=== PATIENT | female | born 1930 | race Caucasian/White ===

== ENCOUNTER → 2017-11-24 19:01 | Outpatient (CLI) | payer MEDICARE, BC ==
[2014-02-07 18:17] VITALS: BMI 26.2
[~2017-11-24 19:01] MED LIST: COUMADIN3 MG; K-DUR20 MEQ PO; LEVOXYL50 MCG PO; NORVASC5 MG PO; PACERONE200 MG PO; RED YEAST RICE600 MG PO
[2017-11-24 19:54] LABS: CREATININE - SERUM 1.3 mg/dL (0.6-1.3)
== END | disposition home or self-care (01) ==
LOC: D.LABREF 19:01
PROVIDERS: Internal Medicine Pulmonary Disease
DX: R05 Cough (principal)

== ENCOUNTER → 2017-12-19 09:31 | Outpatient (CLI) | payer MEDICARE, BC ==
[2014-02-07 18:17] VITALS: BMI 26.2
[2017-12-19 11:30] LABS: CREATININE - SERUM 1.3 mg/dL (0.6-1.3)
[2017-12-23 19:12] LABS: FUNGAL - ASP FLAVUS Negative (Neg:<1:1); FUNGAL - ASP NIGER Negative (Neg:<1:1); FUNGAL - ASPER FUMIGATUS Negative (Neg:<1:1)
== END | disposition home or self-care (01) ==
LOC: D.RT 09:31
PROVIDERS: Internal Medicine Pulmonary Disease
DX: R93.8 Abnormal findings on diagnostic imaging of other specified body structures (principal); R06.09 Other forms of dyspnea; Z87.01 Personal history of pneumonia (recurrent)

== ENCOUNTER 2018-01-12 09:27 | Outpatient (CLI) | payer MEDICARE, BC ==
[~2018-01-12] VITALS: Ht 167.6 cm; Wt 62.7 kg
[2018-01-12 09:58] LABS: BASOPHILS 0.4 % (0-2); EOSINOPHILS 1.7 % (0-7); HEMOGLOBIN 12.8 g/dL (12-16); IMMATURE GRANULOCYTES 0.2 % (0-5); LYMPHOCYTES 29.8 % (15-50); MCH 31.3 pg (26.0-34.0); MCHC 33.7 g/dL (31.0-37.0); MCV 92.9 fL (80.0-100.0); MEAN PLATELET VOLUME 10.7 fL (7.4-10.4); MONOCYTES 11.2 % (2-11); NEUTROPHILS 56.7 % (40-80); PLATELET COUNT 257 10x3/uL (130-400); RBC 4.09 10x6/uL (4.00-5.40); RDW 14.7 % (11.5-14.5); WBC 9.3 10x3/uL (4.8-10.8)
[2018-01-12 10:18] LABS: INR 1.2 (0.85-1.17); PROTIME 14.8 SECONDS (11.6-15.0)
[2018-01-12 10:19] LABS: APTT 31.4 SECONDS (22.8-39.4)
[2018-01-12 12:20] VITALS: BP 166/68; Ht 167.6 cm; Wt 62.7 kg
[2018-01-14 18:08] LABS: ACID FAST SMEAR Negative (()); AFB SPECIMEN PROCESSING Concentration (())
[2018-01-18 10:21] LABS: FUNGUS STAIN Final report (())
[2018-01-22 19:07] LABS: FUNGUS MYCOLOGY CULTURE Preliminary report (())
== END 2018-01-12 15:50 | disposition home or self-care (01) ==
LOC: D.OPS 09:27
PROVIDERS: Internal Medicine Pulmonary Disease
DX: R93.8 Abnormal findings on diagnostic imaging of other specified body structures (principal); J45.909 Unspecified asthma, uncomplicated; R05 Cough; I10 Essential (primary) hypertension; Z01.812 Encounter for preprocedural laboratory examination

== ENCOUNTER → 2018-08-07 14:22 | Outpatient (CLI) | payer MEDICARE, BC ==
[2018-01-12 12:20] VITALS: BMI 22.3
== END | disposition home or self-care (01) ==
LOC: D.RAD 14:22
PROVIDERS: ATTEND Nurse Practitioner Acute Care
DX: J15.20 Pneumonia due to staphylococcus, unspecified (principal)

== ENCOUNTER 2018-11-19 07:13 | Emergency (ER) | payer MEDICARE, BC ==
[~2018-11-19] VITALS: Ht 167.6 cm; Wt 63.6 kg
[2018-11-19 07:15] VITALS: Ht 167.6 cm; Wt 63.6 kg
[2018-11-19] MEDS ORDERED: BETAPACE 80 MG80 MG PO (07:17)
[2018-11-19 07:46] LABS: BASOPHILS 0.2 % (0-2); EOSINOPHILS 0.6 % (0-7); HEMATOCRIT 37.1 % (36.0-48.0); HEMOGLOBIN 12.6 g/dL (12-16); LYMPHOCYTES 10.3 % (15-50); MCV 91.2 fL (80.0-100.0); MEAN PLATELET VOLUME 10.1 fL (7.4-10.4); MONOCYTES 7.9 % (2-11); PLATELET COUNT 227 10x3/uL (130-400); RBC 4.07 10x6/uL (4.00-5.40); RDW 14.1 % (11.5-14.5); WBC 19.2 10x3/uL (4.8-10.8)
[2018-11-19 08:00] LABS: ALBUMIN 3.5 g/dL (3.4-5.0); BILIRUBIN - TOTAL 0.61 mg/dL (0.2-1.3); CALCIUM 8.7 mg/dL (8.5-10.1); CARBON DIOXIDE 27.2 mmol/L (21.0-32.0); CREATININE - SERUM 1.3 mg/dL (0.6-1.3); POTASSIUM - SERUM 4.2 mmol/L (3.5-5.1); PROTEIN - SERUM 7.8 g/dL (6.4-8.2)
[2018-11-19 08:45] LABS: APPEARANCE CLEAR (CLEAR); BILIRUBIN NEGATIVE (NEGATIVE); COLOR STRAW (YELLOW); GLUCOSE NEGATIVE (NEGATIVE); KETONE NEGATIVE (NEGATIVE); NITRITE NEGATIVE (NEGATIVE); PROTEIN TRACE mg/dL (NEGATIVE); SPECIFIC GRAVITY 1.005 (1.005-1.020); UROBILINOGEN NORMAL (NORMAL)
[2018-11-19 08:48] LABS: BACTERIA FEW /hpf (NONE SEEN); EPITHELIAL CELLS NSEEN /hpf (0-5); RED CELLS - URINE 0-5 /hpf (0-5); WHITE CELLS - URINE NSEEN /hpf (0-5)
[2018-11-19 11:02] LABS: APTT 42.4 SECONDS (22.8-39.4); INR 2.13 (0.85-1.17); PROTIME 23.1 SECONDS (11.6-15.0)
[2018-11-19 12:38] VITALS: BP 122/76
== END 2018-11-19 12:39 | disposition home or self-care (01) ==
LOC: D.ER 07:13
PROVIDERS: Emergency Medicine
DX: I48.91 Unspecified atrial fibrillation (principal); M43.8X4 Other specified deforming dorsopathies, thoracic region; D72.829 Elevated white blood cell count, unspecified; E86.0 Dehydration; M54.6 Pain in thoracic spine

== ENCOUNTER 2019-03-23 13:16 | Inpatient (IN) | payer MEDICARE, BC ==
[~2019-03-23] VITALS: Ht 167.6 cm; Wt 61.2 kg
[~2019-03-23 13:16] MED LIST changes: +BETAPACE 80 MG80 MG PO
--- NOTE | 2019-03-23 19:00 | NUR ---
BEDSIDE REPORT COMPLETE. PT SITTING UP IN BED VISITING WITH DAUGHTER. NO SIGNS OF DISTRESS NOTED. ALERT AND ORIENTED X4. BUE BRUISING, LEFT ARM +1 EDEMA. ORIENTATED TO FLOOR, BATHROOM, FUNCTIONS OF REMOTE. PROVIDED RECLINING CHAIR AND LINENS TO DAUGHTER. CL AND WATER WITHIN REACH. FALL PRECAUTIONS IN PLACE. WILL CONTINUE TO MONITOR
[2019-03-23 23:12] VITALS: BP 179/82; BMI 21.8
[2019-03-23] MEDS ORDERED: CALCIUM 500 +1 EAC3 PO (23:37)
[2019-03-23] MEDS ORDERED: HYDROCODON-ACE1 EAC7 PO (23:38)
[2019-03-23] MEDS ORDERED: FLECAINIDE ACE100 MG PO (23:38)
[2019-03-23] MEDS ORDERED: HYDROCODONE-A1 UDTA2 PO (23:39)
[2019-03-23] MEDS ORDERED: LISINOPRIL5 MG PO (23:40)
[2019-03-23] MEDS ORDERED: NITROSTAT0.4 MG SL (23:40)
[2019-03-23] MEDS ORDERED: VITAMIN B-6100 MG PO (23:41)
[2019-03-23] MEDS ORDERED: RED YEAST RICE600 MG PO (23:42)
[2019-03-23] MEDS ORDERED: COLACE100 MG PO (23:43)
[2019-03-23] MEDS ORDERED: SYNTHROID50 MCG PO (23:43)
[2019-03-23] MEDS ORDERED: COUMADIN2.5 MG PO (23:44)
--- NOTE | 2019-03-24 00:53 | NUR ---
QUIET HOURS. PT LYING IN BED EYES CLOSED RESTING QUIETLY. DAUGHTER ASLEEP AT BEDSIDE. CL IN REACH
--- NOTE | 2019-03-24 03:54 | NUR ---
PT LYING IN BED ON RIGHT SIDE EYES CLOSED RESTING. DAUGHTER ASLEEP AT BEDSIDE. CL IN REACH
[2019-03-24 05:57] LABS: BASOPHILS 0.6 % (0-2); EOSINOPHILS 3.8 % (0-7); HEMATOCRIT 34.4 % (36.0-48.0); IMMATURE GRANULOCYTES 0.5 % (0-5); LYMPHOCYTES 26.3 % (15-50); MCH 30.5 pg (26.0-34.0); MCV 95.3 fL (80.0-100.0); MEAN PLATELET VOLUME 10.8 fL (7.4-10.4); MONOCYTES 12.2 % (2-11); NEUTROPHILS 56.6 % (40-80); RBC 3.61 10x6/uL (4.00-5.40); RDW 14.3 % (11.5-14.5); WBC 8.1 10x3/uL (4.8-10.8)
[2019-03-24 06:05] LABS: INR 1.69 (0.85-1.17); PLATELET COUNT 294 10x3/uL (130-400); PROTIME 19.3 SECONDS (11.6-15.0)
[2019-03-24 06:08] LABS: ANION GAP 13.1 mmol/L (8-16); CALCIUM 8.8 mg/dL (8.5-10.1); CREATININE - SERUM 1.2 mg/dL (0.6-1.3); POTASSIUM - SERUM 4.1 mmol/L (3.5-5.1)
[2019-03-24 08:00] VITALS: BP 155/97
--- NOTE | 2019-03-24 08:06 | NUR ---
ALERT AND ORIENTED. EATING BREAKFAST. NO C/O PAIN RESP EVEN AND UNLABORED. CL IN REACH. HAD SHOWER THIS AM PER OT.
[2019-03-24 09:14] VITALS: Ht 167.6 cm; Wt 61.2 kg
--- NOTE | 2019-03-24 11:20 | NUR ---
PARTICIPATING IN THERPY AT THIS TIME. NO C\O PAIN.
--- NOTE | 2019-03-24 16:04 | NUR ---
NO CHANGE IN ASSESSMENT. RESTING WO DISTRESS. CL IN REACH.
[2019-03-24 19:00] VITALS: BP 144/59
--- NOTE | 2019-03-24 19:00 | NUR ---
BEDSIDE REPORT COMPLETE. PT SITTING UP IN BED. ALERT AND ORIENTED X4. DENIES ANY NEEDS OR PAIN. NO FAMILY AT BEDSIDE NOTE. NO SIGNS OF ACUTE DISTRESS NOTED. VS STABLE. SHIFT ASSESSMENT COMPLETE. CL IN REACH. FALL PRECAUTIONS IN PLACE. WILL CONTINUE TO MONITOR
--- NOTE | 2019-03-25 01:28 | NUR ---
QUIET HOURS. PT LYING IN BED AWAKE AND ALERT. DENIES ANY NEEDS OR PAIN. RR EVEN AND UNLABORED. CL IN REACH
--- NOTE | 2019-03-25 04:38 | NUR ---
PT LYING IN BED EYES CLOSED RESTING QUIETLY. RR EVEN AND UNLABORED. CL IN REACH
--- NOTE | 2019-03-25 05:00 | NUR ---
ASSISTED PT TO RESTROOM AND BACK TO BED WITH SBA. NO SIGNS OF ACUTE DISTRESS NOTED CL IN REACH
--- NOTE | 2019-03-25 07:12 | NUR ---
ALERT AND ORIENTED. NO DISTRESS NOTED. RESP EVEN AND UNLABORED. CL IN REACH.
[2019-03-25 09:25] VITALS: BP 177/58
--- NOTE | 2019-03-25 10:51 | NUR ---
NO C/O PAIN. RESTING IN BED. FAMILY AT BS. CL IN REACH.
[2019-03-25 13:38] LABS: INR 1.98 (0.85-1.17); PROTIME 21.9 SECONDS (11.6-15.0)
--- NOTE | 2019-03-25 16:52 | NUR ---
NO CHANGE IN ASSESSMENT. NO DISTRESS NOTED. RESTING IN BED. CL IN REACH.
[2019-03-25 19:10] VITALS: BP 173/93
--- NOTE | 2019-03-25 19:10 | NUR ---
BEDSIDE REPORT COMPLETE. PT LYING IN BED AWAKE AND ALERT. ASSISTED TO RESTROOM AND BACK TO BED WITH SBA. C/O BACK PAIN 11/22 RADIATING. ADVISED PT CAN NOT ADMININSTER PAIN MEDICATION UNTIL 2029 WHEN NEXT DOSE IS AVAILABLE. PT VERBALIZED UNDERSTANING. VS STABLE. SHIFT ASSESSMENT COMPLETE. CL IN REACH. FALL PRECAUTIONS IN PLACE. WILL CONTINUE TO MONITOR
--- NOTE | 2019-03-25 23:42 | NUR ---
QUIET HOURS. PT LYING IN BED ON LEFT SIDE EYES CLOSED RESTING. RR EVEN AND UNLABORED. CL IN REACH
--- NOTE | 2019-03-26 03:39 | NUR ---
PT LYING IN BED ON LEFT SIDE EYES CLOSED RESTING QUIETLY. RR EVEN AND UNLABORED. CL IN REACH
--- NOTE | 2019-03-26 05:38 | NUR ---
ASSISTED PT TO RESTROOM AND BACK TO BED WITH SBA. CL IN REACH
[2019-03-26 05:48] LABS: BASOPHILS 0.4 % (0-2); EOSINOPHILS 2.3 % (0-7); HEMATOCRIT 38.5 % (36.0-48.0); HEMOGLOBIN 12.4 g/dL (12-16); IMMATURE GRANULOCYTES 0.3 % (0-5); LYMPHOCYTES 29.6 % (15-50); MCH 30.8 pg (26.0-34.0); MCHC 32.2 g/dL (31.0-37.0); MCV 95.8 fL (80.0-100.0); MEAN PLATELET VOLUME 11.6 fL (7.4-10.4); MONOCYTES 13.2 % (2-11); NEUTROPHILS 54.2 % (40-80); RBC 4.02 10x6/uL (4.00-5.40); RDW 14.3 % (11.5-14.5); WBC 9.3 10x3/uL (4.8-10.8)
[2019-03-26 06:16] LABS: ANION GAP 11.8 mmol/L (8-16); CALCIUM 8.7 mg/dL (8.5-10.1); CARBON DIOXIDE 30.2 mmol/L (21.0-32.0); CREATININE - SERUM 1.2 mg/dL (0.6-1.3)
[2019-03-26 06:23] LABS: PLATELET COUNT 355 10x3/uL (130-400)
[2019-03-26 06:33] LABS: INR 1.72 (0.85-1.17); PROTIME 19.5 SECONDS (11.6-15.0)
[2019-03-26 07:54] VITALS: BP 133/63
--- NOTE | 2019-03-26 08:15 | NUR ---
PT RESTING IN BED WITH EYES OPEN CALL LIGHT IN REACH WILL MONITER
--- NOTE | 2019-03-26 13:42 | NUR ---
Nutrition Follow-up: Diet: Regular PO intake: ~38% average x last 6 meals recorded. Reports poor appetite due to pain, N/V and diarrhea; but is drinking Ensure. Last BM: 03/25/19. Wt: 135# (03/24/19) Labs noted: GFR 45. Significant meds: coumadin Continue current nutrition regimen. Encourage PO intake. Will change oral nutrition supplement flavor per pt request. RD Following.
--- NOTE | 2019-03-26 18:43 | NUR ---
PT RESTING IN BED WITH EYES OPEN CALL LIGHT IN REACH NO PROBLEMS WILL MONITER
--- NOTE | 2019-03-26 18:55 | NUR ---
BEDSIDE REPORT COMPLETE. PT LYING IN BED AWAKE AND ALERT. ASSISTED TO RESTROOM AND BACK TO BED WITH SBA. DENIES ANY OTHER NEEDS OR PAIN. VS STABLE. SHIFT ASSESSMENT COMPLETE. CL IN REACH. FALL PRECAUTIONS IN PLACE. WILL CONTINUE TO MONITOR
[2019-03-26 21:12] VITALS: BP 118/52
--- NOTE | 2019-03-26 23:10 | NUR ---
QUIET HOURS. PT LYING IN BED ON LEFT SIDE EYES CLOSED RESTING QUIETLY. RR EVEN AND UNLABORED. CL IN REACH
--- NOTE | 2019-03-27 03:32 | NUR ---
PT LYING IN BED ON RIGHT SIDE EYES CLOSED RESTING. RR EVEN AND UNLABORED. CL IN REACH
[2019-03-27 06:25] LABS: INR 2.11 (0.85-1.17)
--- NOTE | 2019-03-27 06:34 | NUR ---
PT LYING IN BED ON RIGHT SIDE EYES CLOSED RESTING. RR EVEN AND UNLABORED. CL IN REACH
[2019-03-27 08:27] VITALS: BP 155/71
--- NOTE | 2019-03-27 11:33 | NUR ---
I have reviewed this patient and I concur with the Shift Assessment completed by the Licensed Practical Nurse today this shift.
--- NOTE | 2019-03-27 15:50 | NUR ---
PT RESTING IN BED WITH EYES OPEN CALL LIGHT IN REACH WILL MONITER
--- NOTE | 2019-03-27 17:24 | NUR ---
PT RESTING IN BED EYES OPEN CALL LIGHT IN REACH FAMILY AT BEDSIDE WILL MONITER
--- NOTE | 2019-03-27 19:32 | NUR ---
AWAKE AND ALERT. RESTING IN BED WITH RESPIRATIONS UNLABORED. ASSISTED TO BATHROOM AND BACK TO BED. MEDICATED FOR C/O BACK PAIN AND C/O NAUSEA. SEE MAR. CALL LIGHT IN REACH.
[2019-03-27 21:36] VITALS: BP 172/72
--- NOTE | 2019-03-28 00:16 | NUR ---
SLEEPING WITH RESPIRATIONS UNALBORED. NO DISTRESS NOTED. CALL LIGHT IN REACH.
--- NOTE | 2019-03-28 03:28 | NUR ---
CONTINUES SLEEPING WITH NO DISTRESS NOTED.
--- NOTE | 2019-03-28 05:09 | NUR ---
QUIET HOURS. ASSISTED UP TO BATHROOM AND BACK TO BED. MEDICATED FOR C/O PELVIC PAIN. CALL LIGHT IN REACH.
[2019-03-28 06:08] LABS: BASOPHILS 0.4 % (0-2); EOSINOPHILS 2.9 % (0-7); HEMATOCRIT 33.9 % (36.0-48.0); HEMOGLOBIN 10.7 g/dL (12-16); IMMATURE GRANULOCYTES 0.5 % (0-5); LYMPHOCYTES 25.5 % (15-50); MCH 30.3 pg (26.0-34.0); MCHC 31.6 g/dL (31.0-37.0); MEAN PLATELET VOLUME 11.3 fL (7.4-10.4); MONOCYTES 13.1 % (2-11); NEUTROPHILS 57.6 % (40-80); PLATELET COUNT 332 10x3/uL (130-400); RBC 3.53 10x6/uL (4.00-5.40); RDW 14.6 % (11.5-14.5); WBC 8.3 10x3/uL (4.8-10.8)
[2019-03-28 06:21] LABS: ANION GAP 7.3 mmol/L (8-16); CALCIUM 8.5 mg/dL (8.5-10.1); CARBON DIOXIDE 32.5 mmol/L (21.0-32.0); CREATININE - SERUM 1.4 mg/dL (0.6-1.3); POTASSIUM - SERUM 3.8 mmol/L (3.5-5.1)
[2019-03-28 06:28] LABS: INR 2.25 (0.85-1.17); PROTIME 24.2 SECONDS (11.6-15.0)
[2019-03-28 08:34] VITALS: BP 158/63
--- NOTE | 2019-03-28 10:03 | NUR ---
PARTICIPATED IN THERAPY THIS AM. IN ROOM RESTING AT THIS TIME. NO C/O PAIN. CL IN REACH.
--- NOTE | 2019-03-28 14:22 | NUR ---
DOING THERAPY WITH OT IN ROOM. PAIN MED GIVEN. SITTING IN WC.
--- NOTE | 2019-03-28 14:53 | NUR ---
PATIENT ADMITTED TO REHAB FROM AN OUTSIDE FACILITY. HER PCP IS DR. LOPEZ AND DME AT HOME IS A ROLLING WALKER. DISCHARGE PLANS ARE FOR PATIENT TO DISCHARGE HOME. WILL CONTINUE TO FOLLOW WITH PATIENT
--- NOTE | 2019-03-28 16:16 | NUR ---
NO CHANGE IN ASSESSMENT. NO C/O PAIN. FAMILY IN ROOM. CL IN REACH.
[2019-03-28 19:20] VITALS: BP 167/99
--- NOTE | 2019-03-28 19:20 | NUR ---
BEDSIDE REPORT COMPLETE. PT SITTING UP IN BED WATCHING TV. ALERT AND ORIENTED X4. NO SIGNS OF ACUTE DISTRESS NOTED. DENIES ANY NEEDS. C/O MILD LOWER BACK PAIN 08/23. REQUESTS PAIN MEDICATION WITH HS MEDS. VS STABLE. SHIFT ASSESSMENT COMPLETE. CL IN REACH. FALL PRECAUTIONS IN PLACE. WILL CONTINUE TO MONITOR
--- NOTE | 2019-03-28 23:25 | NUR ---
QUIET HOURS. PT LYING IN BED ON LEFT SIDE EYES CLOSED RESTING COMFORTABLY. RR EVEN AND UNLABORED. CL IN REACH. BED ALARM ON
--- NOTE | 2019-03-29 02:30 | NUR ---
PT LYING IN BED EYES CLOSED RESTING QUIETLY. RR EVEN AND UNLABORED. CL IN REACH.
--- NOTE | 2019-03-29 06:26 | NUR ---
PT LYING IN BED EYES CLOSED RESTING. RR EVEN AND UNLABORED. CL IN REACH
[2019-03-29 06:46] LABS: INR 2.51 (0.85-1.17); PROTIME 26.3 SECONDS (11.6-15.0)
[2019-03-29 08:00] VITALS: BP 165/59
--- NOTE | 2019-03-29 08:00 | NUR ---
PT RESTING IN BED WITH EYES OPEN CALL LIGHT IN REACH NO PROBLEMS WILL MONITER
--- NOTE | 2019-03-29 08:15 | NUR ---
PT RESTING IN BED WITH EYES OPEN CALL LIGHT IN REACH NO PROBLEMS WILL MONITER
[2019-03-29] MEDS ORDERED: NORCO-7.5 PO (08:24)
[2019-03-29] MEDS ORDERED: COREG 3.1253.125 MG PO (08:24)
[2019-03-29] MEDS ORDERED: HYDROCODON-ACE1 EAC7 PO (08:26)
--- NOTE | 2019-03-29 09:57 | NUR ---
PATIENT DISCHARGING HOME TODAY WITH FAMILY. [facility] WILL PROVIDE THERAPY AT HOME. NO NEW DME NEEDED AT THIS TIME. DR. LOPEZ/ RUPERT GUTIERREZ NURSING INFORMATICS CLINICAL ANALYST 04/06/19 @ 10:45, CAESAR BALL NURSING INFORMATICS CLINICAL ANALYST 04/02/19 @ 2:00. PATIENT CHOICE FORM (HANDOUT GIVEN ) AND IMFM FORMS SIGNED, COPY GIVEN TO PATIENT AND FILED IN CHART. DISCHARGE INSTRUCTIONS FAXED TO PCP, HOME HEALTH AND REVIEWED WITH PATIENT AND DAUGHTER.
--- NOTE | 2019-03-29 13:50 | NUR ---
PT DISCHARGED TO HOME VIA WHEELCHAIR WITH DAUGHTER DISCHARGE SUMMARY AND MEDS REVIEWED WITH PT TOLERATED WELL
--- NOTE | 2019-03-29 15:40 | NUR ---
[facility], REFERRAL FAXED TO [facility] , MR MARTINEZ ( SON N LAW ) notified
--- NOTE | 2019-04-02 09:24 | RHP ---
PATIENT: KIMBERLY SOW MEDICAL RECORD: [id number] ACCOUNT: [id number] [facility] : [birth year] ADMISSION DATE: 03/23/19 REHABILITATION HISTORY AND PHYSICAL EXAMINATION POST ADMISSION PHYSICIAN EXAMINATION POST ADMISSION PHYSICAL EXAM AND HISTORY AND PHYSICAL DATE OF ADMISSION: 03/23/2019 ADMITTING DIAGNOSIS: L1 compression fracture. HISTORY OF PRESENT ILLNESS: The patient is an 88-year-old female patient, who had a fall on March 15. She was seen in the ED, diagnosed with L1 compression fracture. A TLSO was prescribed and she was discharged home. Since that time she has had intermittent activity and had progressive pain. She returned to the ED on March 18 with intractable pain and was admitted. Repeat imaging showed 30% compression fracture with minimal bony retropulsion of 1-2 mm noted. She is on Coumadin for AFib. Did not show any suspicion of hematoma at that time. She has had AFib with rapid ventricular response with elevated rates at times. Cardiology was consulted. She was on flecainide 50 mg at that time, she was increased to 100 mg b.i.d. along with Coreg. She is currently in AFib with controlled rate. Previously, she was living with her son and was moderately independent with ADLs and mobility using a quad cane. She currently is set up mod to max assist for ADLs and mobility. She has got 5/10 pain. She has ambulated 34 feet with PT using a gait belt and rolling walker. She has poor balance. She also has to require cues for walking safely. Would like to be able to return home at her prior level of functioning or better. Comorbidities include respiratory distress, cardiac arrhythmia, fluid overload, DVT, falls, loss of appetite, change in cognition, electrolyte imbalances, malnutrition, dehydration, weight loss, hypoxia, UTI, incontinence, anxiety, depression, hyperlipidemia, hypotension, hypertensive emergency, and fever. PAST MEDICAL HISTORY: Significant for paroxysmal AFib, hypothyroidism, hypertension, and hyperlipidemia. PAST SURGICAL HISTORY: Includes appendectomy, lumpectomy in her breast. ALLERGIES: CODEINE. CURRENT MEDICATIONS: Include Coumadin 2.5 mg daily, pyridoxine 50 mg daily, lisinopril 5 mg daily, carvedilol 3.125 mg b.i.d. with meals, Synthroid 50 mcg daily, acetaminophen 500 mg every 6 hours p.r.n., Zofran 4 mg every 4 hours p.r.n., Colace 100 mg at bedtime. She is on flecainide or Tambocor 100 mg b.i.d., Os-Gigi D 500 mg b.i.d., Kent 5/325 one tab every 4-6 hours p.r.n. pain. She is on polyethylene glycol 17 grams in 8 ounces of water daily and Nitrostat 0.4 mg every 5 hours p.r.n. HABITS: No alcohol or tobacco use. FAMILY HISTORY: Noncontributory. SOCIAL HISTORY: The patient hopes to return back home and get back to her prior level of functioning. HISTORY AND PHYSICAL [id number] KIMBERLY SOW REVIEW OF SYSTEMS: GENERAL: Does complain of weakness and fatigue. HEENT: Denies cold, cough, or congestion. CARDIOVASCULAR: Denies chest pain. PHYSICAL EXAMINATION: VITAL SIGNS: Stable, afebrile. GENERAL: An elderly female, in no acute distress upon exam. HEENT: Normocephalic, atraumatic. Mucosa moist. NECK: Supple. No lymphadenopathy. LUNGS: Clear at this time in the upper quintanilla. HEART: Irregular rate and rhythm. ABDOMEN: Soft, benign, nondistended. Positive bowel sounds times 4. EXTREMITIES: No clubbing, cyanosis or edema. NEUROLOGIC: She has got 2-3/5 muscular strength in her lower extremities. LABORATORY DATA: White count is 8.1, H&H of 11 and 34, and platelet count is 294. Sodium is 139, potassium 4.1, BUN and creatinine of 21 and 1.2, and blood sugar is noted to be 94. INR is 1.69. ASSESSMENT: This is an 88-year-old female patient admitted to the rehab with a working diagnosis of debility secondary to compression fracture of her back. The patient has potential to make improvement. We will institute the following multidisciplinary therapies including, but not limited to, physical, occupational, respiratory, speech, nutritional services, prosthetics, and orthotics. Given her complex medical condition and risk for more complications, rehabilitation services cannot be provided at a lower level of care such as a skilled nurse facility. PLAN: 1. Admit to [facility] for an inpatient therapy to include the following disciplines; A. Physical therapy to improve gait, all transfer skills, and bed mobility to modified independent level. B. Occupational therapy to modified independent level. C. Case management to assist with discharge planning and placement options. D. Nutrition to assist with nutritional needs. E. Rehabilitation nursing to assist in monitoring the patient's underlying medical conditions and to assist with any type of bowel or bladder management. 2. The patient's current medications and medical care will be continued. 3. The patient will be placed on standard fall precautions. 4. We will go ahead and increase her warfarin levels to get her INR back to therapeutic and we will see again in the a.m. on Tuesday. TRANSINT:[id number] Voice Confirmation ID: [id number] DOCUMENT ID: [id number] 04/02/2019 Edited for rocio ARREDONDO. ARNULFO notes whether there has been none or any medical/functional change since admission: - No change since preadmission screen. ARNULFO attests patient continues to be appropriate for IRF: - Continues to be appropriate. HISTORY AND PHYSICAL [id number] KIMBERLY SOW,BREEZY SIMMS MD at 0924 CC: [id number] DICTATION DATE: 03/24/19 0950 CORPORATE GIVING MANAGER: 03/24/19 1112 DIS IN 03/29/19 [id number] [place] [address]
== END 2019-03-29 15:55 | disposition home health service (06) | DRG 560 ==
LOC: D.REHAB 13:16
PROVIDERS: ADMIT Emergency Medicine; ATTEND Emergency Medicine
DX: S32.019D Unspecified fracture of first lumbar vertebra, subsequent encounter for fracture with routine healing (principal); I82.409 Acute embolism and thrombosis of unspecified deep veins of unspecified lower extremity; E46 Unspecified protein-calorie malnutrition; N39.0 Urinary tract infection, site not specified; W19.XXXD Unspecified fall, subsequent encounter; R53.81 Other malaise; R06.03 Acute respiratory distress; I49.9 Cardiac arrhythmia, unspecified; E87.70 Fluid overload, unspecified; R63.0 Anorexia; E87.8 Other disorders of electrolyte and fluid balance, not elsewhere classified; E86.0 Dehydration; R63.4 Abnormal weight loss; R32 Unspecified urinary incontinence; F41.9 Anxiety disorder, unspecified; F32.9 Major depressive disorder, single episode, unspecified; E78.5 Hyperlipidemia, unspecified; I95.9 Hypotension, unspecified; R50.9 Fever, unspecified; I16.0 Hypertensive urgency; I48.0 Paroxysmal atrial fibrillation; E03.9 Hypothyroidism, unspecified; Z79.01 Long term (current) use of anticoagulants

== ENCOUNTER 2019-07-17 01:15 | Inpatient (IN) | payer MEDICARE, BC ==
[~2019-07-17] VITALS: Ht 167.6 cm; Wt 55.9 kg
[2019-07-17] VITALS (10 sets, daily range): BP systolic 113–164; BP diastolic 20–98; BMI 20.7
[~2019-07-17 01:15] MED LIST changes: +CALCIUM 500 +1 EAC3 PO; +COLACE100 MG PO; +COREG 3.1253.125 MG PO; +COUMADIN2.5 MG PO; +FLECAINIDE ACE100 MG PO; +HYDROCODON-ACE1 EAC7 PO; +HYDROCODONE-A1 UDTA2 PO; +LISINOPRIL5 MG PO; +NITROSTAT0.4 MG SL; +NORCO-7.5 PO; +SYNTHROID50 MCG PO; +VITAMIN B-6100 MG PO
[2019-07-17 01:42] LABS: BASOPHILS 0.2 % (0-2); EOSINOPHILS 1.2 % (0-7); HEMATOCRIT 37.1 % (36.0-48.0); HEMOGLOBIN 12.5 g/dL (12-16); IMMATURE GRANULOCYTES 0.2 % (0-5); LYMPHOCYTES 12.9 % (15-50); MCH 31.5 pg (26.0-34.0); MCHC 33.7 g/dL (31.0-37.0); MCV 93.5 fL (80.0-100.0); MEAN PLATELET VOLUME 10.9 fL (7.4-10.4); MONOCYTES 6.4 % (2-11); NEUTROPHILS 79.1 % (40-80); PLATELET COUNT 271 10x3/uL (130-400); RBC 3.97 10x6/uL (4.00-5.40); RDW 15.4 % (11.5-14.5)
[2019-07-17 01:50] LABS: INR 1.74 (0.85-1.17); PROTIME 20.1 SECONDS (11.6-15.0)
[2019-07-17 01:51] LABS: CALC OSMOLALITY 278 mosm/kg (275-300); CALCIUM 8.7 mg/dL (8.5-10.1); CARBON DIOXIDE 27.4 mmol/L (21.0-32.0); CHLORIDE - SERUM 100 mmol/L (98-107); CREATININE - SERUM 1.3 mg/dL (0.6-1.3); POTASSIUM - SERUM 4.1 mmol/L (3.5-5.1); SODIUM 137 mmol/L (136-145); UREA NITROGEN 21 mg/dL (7-18); eGFR NON AFRICAN AMERICAN 41 mL/min (90-120)
[2019-07-17 01:52] LABS: GLUCOSE 140 mg/dL (74-106)
[2019-07-17 02:08] LABS: ALBUMIN 3.5 g/dL (3.4-5.0); ALKALINE PHOSPHATASE 77 U/L (30-120); ALT (SGPT) 24 U/L (10-68); BILIRUBIN - TOTAL 1.17 mg/dL (0.2-1.3); CKMB 0.7 U/L (0.0-3.6); CREATINE KINASE 46 UL (21-215); PRO BNP 7221 pg/mL (0-450); PROTEIN - SERUM 7.9 g/dL (6.4-8.2)
[2019-07-17 02:09] LABS: TROPONIN-I < 0.017 ng/mL (0.000-0.060)
[2019-07-17] MEDS ORDERED: ZOFRAN4 MG PO (02:24)
--- NOTE | 2019-07-17 02:30 | NUR ---
PT SITTING UPRIGHT IN BED. PT DENIES NEEDS AT THIS TIME. FAMILY AT BEDSIDE.
--- NOTE | 2019-07-17 03:42 | NUR ---
PT AND FAMILY UPDATED ON PLAN OF CARE. PT PROVIDED PILLOW FOR COMFORT.
--- NOTE | 2019-07-17 04:18 | NUR ---
PT RESTING ON BED. O2 IN PLACE. FAMILY AT BEDSIDE. NO S/S OF ACUTE DISTRESS NOTED.
--- NOTE | 2019-07-17 05:36 | NUR ---
PT SLEEPING ON BED, NO S/S OF ACUTE DISTRESS NOTED.
--- NOTE | 2019-07-17 06:33 | NUR ---
PT NOT IN ROOM YET
[2019-07-17 09:02] LABS: CKMB 0.8 U/L (0.0-3.6); CREATINE KINASE 41 UL (21-215); TROPONIN-I < 0.017 ng/mL (0.000-0.060)
[2019-07-17 11:39] LABS: APTT 35.9 SECONDS (22.8-39.4)
[2019-07-17 11:40] LABS: D-DIMER-QUANTITATIVE 1.3 ug/mLFEU (0.20-0.54)
[2019-07-17 14:11] LABS: CKMB 0.7 U/L (0.0-3.6); CREATINE KINASE 43 UL (21-215)
[2019-07-17 14:12] LABS: TROPONIN-I < 0.017 ng/mL (0.000-0.060)
--- NOTE | 2019-07-17 20:20 | NUR ---
EVENING ROUNDS COMPLETED. AFVSS, AAOX3, NO S/S OF RT DISTRESS. FAMILY AT BEDSIDE. PT RESTING COMFORTABLY. 2L NC, O2SAT 94. SR ON MONITOR. BILAT LEGS APPEARS EDEMATOUS. WEAK PULSES ON BOTH FOOT. PT DENIES ANY FURTHER NEEDS AT THIS TIME. WILL CPOC. CL WITHIN REACH, BED IN LOW,SR UP X2.
[2019-07-17 21:07] LABS: CKMB 0.8 U/L (0.0-3.6); CREATINE KINASE 47 UL (21-215)
[2019-07-17 21:08] LABS: TROPONIN-I < 0.017 ng/mL (0.000-0.060)
[2019-07-18] VITALS: BP 118/73
[2019-07-18 04:00] VITALS: BP 120/69
[2019-07-18 07:30] LABS: BASOPHILS 0 % (0-2); EOSINOPHILS 0 % (0-7); HEMATOCRIT 33.2 % (36.0-48.0); IMMATURE GRANULOCYTES 0.2 % (0-5); LYMPHOCYTES 6.4 % (15-50); MCH 31.2 pg (26.0-34.0); MCHC 33.1 g/dL (31.0-37.0); MCV 94.1 fL (80.0-100.0); MEAN PLATELET VOLUME 11.4 fL (7.4-10.4); MONOCYTES 4.3 % (2-11); NEUTROPHILS 89.1 % (40-80); PLATELET COUNT 254 10x3/uL (130-400); RBC 3.53 10x6/uL (4.00-5.40); RDW 15.8 % (11.5-14.5)
[2019-07-18 07:36] LABS: WBC 13.1 10x3/uL (4.8-10.8)
[2019-07-18 07:58] LABS: ANION GAP 11.2 mmol/L (8-16); BILIRUBIN - TOTAL 0.54 mg/dL (0.2-1.3); CALCIUM 8.2 mg/dL (8.5-10.1); CARBON DIOXIDE 29.3 mmol/L (21.0-32.0); CREATININE - SERUM 1.6 mg/dL (0.6-1.3); PHOSPHOROUS 4.6 mg/dL (2.5-4.9); POTASSIUM - SERUM 3.5 mmol/L (3.5-5.1); PROTEIN - SERUM 6.8 g/dL (6.4-8.2)
[2019-07-18 09:00] VITALS: BP 146/65
[2019-07-18 12:00] VITALS: BP 145/70
[2019-07-18 14:16] LABS: BACTERIA FEW /hpf (NEGATIVE); BILIRUBIN NEGATIVE (NEGATIVE); EPITHELIAL CELLS 0-5 /hpf (0-5); GLUCOSE NEGATIVE (NEGATIVE); KETONE NEGATIVE (NEGATIVE); NITRITE NEGATIVE (NEGATIVE); RED CELLS - URINE 0-5 /hpf (0-5); SPECIFIC GRAVITY 1.015 (1.005-1.020); UROBILINOGEN NORMAL (NORMAL); WHITE CELLS - URINE RARE /hpf (NEGATIVE)
--- NOTE | 2019-07-18 18:04 | NUR ---
I have reviewed this patient and I concur with the Shift Assessment completed by the Licensed Practical Nurse today this shift.
[2019-07-18 21:17] VITALS: BP 160/96
[2019-07-19 00:31] VITALS: BP 154/83
[2019-07-19 04:00] VITALS: BP 144/96
[2019-07-19 06:32] LABS: BASOPHILS 0 % (0-2); EOSINOPHILS 0 % (0-7); HEMATOCRIT 36.2 % (36.0-48.0); HEMOGLOBIN 12.1 g/dL (12-16); IMMATURE GRANULOCYTES 0.5 % (0-5); LYMPHOCYTES 4.9 % (15-50); MCH 31.5 pg (26.0-34.0); MCHC 33.4 g/dL (31.0-37.0); MCV 94.3 fL (80.0-100.0); MEAN PLATELET VOLUME 11.7 fL (7.4-10.4); NEUTROPHILS 91.6 % (40-80); PLATELET COUNT 294 10x3/uL (130-400); RBC 3.84 10x6/uL (4.00-5.40); RDW 15.8 % (11.5-14.5)
[2019-07-19 06:53] LABS: CALCIUM 8.3 mg/dL (8.5-10.1); CARBON DIOXIDE 32.3 mmol/L (21.0-32.0); CREATININE - SERUM 1.4 mg/dL (0.6-1.3); MAGNESIUM - SERUM 1.9 mg/dL (1.8-2.4); POTASSIUM - SERUM 3.3 mmol/L (3.5-5.1)
[2019-07-19 06:55] LABS: WBC 16.5 10x3/uL (4.8-10.8)
[2019-07-19 08:04] VITALS: BP 158/89
[2019-07-19 12:34] VITALS: BP 136/90
[2019-07-19 12:45] VITALS: Ht 167.6 cm; Wt 55.9 kg
--- NOTE | 2019-07-19 12:55 | NUR ---
I have reviewed this patient and I concur with the Shift Assessment completed by the Licensed Practical Nurse today this shift.
[2019-07-19 16:11] VITALS: BP 174/98
--- NOTE | 2019-07-19 17:39 | NUR ---
RECEIVED VERBAL ORDERS FOR SOAP SUDS OR FLEETS ENEMA ADMINISTRATION PER . ORDER PLACED. WILL CTM.
[2019-07-19 20:00] VITALS: BP 138/80
--- NOTE | 2019-07-19 21:31 | NUR ---
EVENING ROUNDS COMPLETED. PT AFVSS, AAOX4, NO S/S OF PAIN OR DISTRESS. PT RESTING COMFORTABLY IN BED. C/O CONSTIPATION. MIRALX GIVEN ALONGSIDE PM MEDS. PT DENIES ANY FURTHER NEEDS AT THIS TIME. WILL CPOC. CL WITHIN REACH.
[2019-07-20] VITALS: BP 150/96
[2019-07-20 04:00] VITALS: BP 141/89
[2019-07-20 04:57] LABS: BASOPHILS 0.1 % (0-2); EOSINOPHILS 0.3 % (0-7); HEMATOCRIT 38.4 % (36.0-48.0); HEMOGLOBIN 12.6 g/dL (12-16); IMMATURE GRANULOCYTES 0.4 % (0-5); LYMPHOCYTES 13.6 % (15-50); MCH 31.4 pg (26.0-34.0); MCHC 32.8 g/dL (31.0-37.0); MCV 95.8 fL (80.0-100.0); MEAN PLATELET VOLUME 11.1 fL (7.4-10.4); MONOCYTES 9.8 % (2-11); NEUTROPHILS 75.8 % (40-80); PLATELET COUNT 298 10x3/uL (130-400); RBC 4.01 10x6/uL (4.00-5.40); RDW 15.8 % (11.5-14.5); WBC 15.3 10x3/uL (4.8-10.8)
[2019-07-20 05:28] LABS: ANION GAP 8.1 mmol/L (8-16); CALCIUM 8.6 mg/dL (8.5-10.1); CARBON DIOXIDE 35.5 mmol/L (21.0-32.0); CREATININE - SERUM 1.3 mg/dL (0.6-1.3); POTASSIUM - SERUM 3.6 mmol/L (3.5-5.1)
[2019-07-20 09:00] VITALS: BP 130/95
[2019-07-20 12:00] VITALS: BP 131/85
--- NOTE | 2019-07-20 16:17 | NUR ---
FLEET ENEMA ADMINISTERED ORDERED. INSTRUCTED PATIENT TO NOTIFY NURSE WHEN SHE HAS A BOWEL MOVEMENT. STATES TO UNDERSTANDING.
--- NOTE | 2019-07-20 19:10 | NUR ---
BEDSIDE REPORT RECEIVED FROM DAY SHIFT, PT CARE ASSUMED. INTRODUCED SELF AND WROTE NAME ON BOARD. PT LYING IN BED, AAOX4. DENIES ANY NEEDS AT THIS TIME. BED IN LOWEST POSTION, SR X2, CALL LIGHT WITHIN REACH. WILL CONTINUE TO MONITOR.
[2019-07-20 20:00] VITALS: BP 155/102
[2019-07-21] VITALS: BP 130/86
[2019-07-21 04:00] VITALS: BP 134/86
[2019-07-21 05:09] LABS: BASOPHILS 0.1 % (0-2); EOSINOPHILS 0.2 % (0-7); HEMOGLOBIN 13.9 g/dL (12-16); IMMATURE GRANULOCYTES 0.4 % (0-5); LYMPHOCYTES 13.4 % (15-50); MCHC 33.9 g/dL (31.0-37.0); MCV 94.3 fL (80.0-100.0); MEAN PLATELET VOLUME 11.6 fL (7.4-10.4); MONOCYTES 9.3 % (2-11); NEUTROPHILS 76.6 % (40-80); PLATELET COUNT 297 10x3/uL (130-400); RBC 4.35 10x6/uL (4.00-5.40); RDW 15.4 % (11.5-14.5); WBC 17.7 10x3/uL (4.8-10.8)
[2019-07-21 05:28] LABS: INR 1.19 (0.85-1.17)
[2019-07-21 05:34] LABS: ANION GAP 10.2 mmol/L (8-16); CARBON DIOXIDE 34.6 mmol/L (21.0-32.0); CREATININE - SERUM 1.4 mg/dL (0.6-1.3); MAGNESIUM - SERUM 2.2 mg/dL (1.8-2.4); POTASSIUM - SERUM 3.8 mmol/L (3.5-5.1)
--- NOTE | 2019-07-21 07:30 | NUR ---
PT RESTING, RR EVEN AND UNLABORED. DENIES NEEDS OR PAIN AT THIS TIME. CALL LIGHT WITHIN REACH. BED IN LOWEST POSITION. WILL CONTINUE TO MONITOR.
[2019-07-21 09:10] VITALS: BP 113/75
--- NOTE | 2019-07-21 15:17 | NUR ---
I have reviewed this patient and I concur with the Shift Assessment completed by the Licensed Practical Nurse today this shift.
[2019-07-21 16:00] VITALS: BP 104/51
--- NOTE | 2019-07-21 17:00 | NUR ---
PT ASSISTED TO THE SHOWER PER REQUEST. LINENS AND GOWN CHANGED. ASSISTED OUT OF SHOWER AND BACK TO BED. BED IN LOWEST POSITION. CALL LIGHT WITHIN REACH. WILL CONTINUE TO MONITOR.
--- NOTE | 2019-07-21 17:30 | NUR ---
SPENT 20 MINUTES AT BEDSIDE GOING OVER EACH MED PATIENT IS TAKING CURRENTLY WITH FAMILY MEMBER. VERBALZIED UNDERSTANDING AND NO FURTHER QUESTIONS AT THIS TIME.
--- NOTE | 2019-07-21 19:10 | NUR ---
BEDSIDE REPORT RECEIVED FROM DAY SHIFT, PT CARE ASSUMED. WROTE NAME ON BOARD. PT LYING IN BED WITH EYES CLOSED, RR EVEN AND NONLABORED, NO S/S OF DISTRESS, AROUSES EASILY TO VOICE. DENIES ANY NEEDS AT THIS TIME. BED IN LOWEST POSITION, SR X2, CALL LIGHT WITHIN REACH. WILL CONTINUE TO MONITOR.
[2019-07-21 20:00] VITALS: BP 105/54
[2019-07-22 01:35] VITALS: BP 150/68
[2019-07-22 05:11] VITALS: BP 154/68
[2019-07-22 05:22] LABS: BASOPHILS 0 % (0-2); EOSINOPHILS 0.4 % (0-7); HEMATOCRIT 36.9 % (36.0-48.0); HEMOGLOBIN 12.3 g/dL (12-16); IMMATURE GRANULOCYTES 0.3 % (0-5); LYMPHOCYTES 21.6 % (15-50); MCH 31.3 pg (26.0-34.0); MCHC 33.3 g/dL (31.0-37.0); MCV 93.9 fL (80.0-100.0); MEAN PLATELET VOLUME 11.8 fL (7.4-10.4); MONOCYTES 9.3 % (2-11); NEUTROPHILS 68.4 % (40-80); PLATELET COUNT 284 10x3/uL (130-400); RBC 3.93 10x6/uL (4.00-5.40); RDW 15.4 % (11.5-14.5)
[2019-07-22 05:24] LABS: WBC 10.4 10x3/uL (4.8-10.8)
[2019-07-22 05:30] LABS: INR 1.15 (0.85-1.17); PROTIME 14.6 SECONDS (11.6-15.0)
[2019-07-22 05:46] LABS: ANION GAP 8.9 mmol/L (8-16); CALCIUM 8.9 mg/dL (8.5-10.1); CARBON DIOXIDE 35.4 mmol/L (21.0-32.0); CREATININE - SERUM 1.7 mg/dL (0.6-1.3); MAGNESIUM - SERUM 2.3 mg/dL (1.8-2.4); POTASSIUM - SERUM 3.3 mmol/L (3.5-5.1)
--- NOTE | 2019-07-22 07:44 | NUR ---
PT RESTING, EYES CLOSED RR EVEN AND UNLABORED ON RA. NO DISTRESS NOTED. CALL LIGHT WITHIN REACH. BED IN LOWEST POSITION. WILL CONTINUE TO MONITOR.
[2019-07-22 09:14] VITALS: BP 135/53
[2019-07-22 12:00] VITALS: BP 164/86
[2019-07-22 16:42] VITALS: BP 150/85
--- NOTE | 2019-07-22 17:37 | NUR ---
I have reviewed this patient and I concur with the Shift Assessment completed by the Licensed Practical Nurse today this shift.
[2019-07-22 20:00] VITALS: BP 163/72
[2019-07-23 04:50] LABS: BASOPHILS 0.1 % (0-2); EOSINOPHILS 0.5 % (0-7); IMMATURE GRANULOCYTES 0.5 % (0-5); LYMPHOCYTES 23.2 % (15-50); MCHC 33.3 g/dL (31.0-37.0); MCV 93.1 fL (80.0-100.0); MEAN PLATELET VOLUME 11.1 fL (7.4-10.4); MONOCYTES 11.2 % (2-11); NEUTROPHILS 64.5 % (40-80); PLATELET COUNT 292 10x3/uL (130-400); RBC 4.19 10x6/uL (4.00-5.40); RDW 14.9 % (11.5-14.5)
[2019-07-23 05:04] VITALS: BP 142/68
[2019-07-23 05:11] LABS: INR 1.33 (0.85-1.17); PROTIME 16.4 SECONDS (11.6-15.0)
[2019-07-23 05:34] LABS: CALCIUM 8.9 mg/dL (8.5-10.1); CARBON DIOXIDE 35.2 mmol/L (21.0-32.0); CREATININE - SERUM 1.5 mg/dL (0.6-1.3); MAGNESIUM - SERUM 2.2 mg/dL (1.8-2.4); PHOSPHOROUS 3.1 mg/dL (2.5-4.9); POTASSIUM - SERUM 3.2 mmol/L (3.5-5.1)
--- NOTE | 2019-07-23 07:18 | NUR ---
ATTEMPTED TO ADMINISTER AM MEDS, INCLUDING 40 MEQ OF POTASSIUM TO REPLACE ELECTROLYTE, PER PROTOCOL, REFUSED. STATES, "I'M NOT TAKING ANYTHING UNTIL I TALK TO A DR. ANYTIME I TAKE ANYTHING, POOP STARTS LEAKING OUT AND IS PAINFUL." DENIES ANY OTHER NEEDS AT THIS TIME. BED IN LOWEST POSITION, SR X2, CALL LIGHT WITHIN REACH.
--- NOTE | 2019-07-23 07:46 | NUR ---
RECIEVED REPORT. PATIENT IS AWAKE AND ALERT AND DENIES ANY NEEDS AT THIS TIME.
[2019-07-23 08:34] VITALS: BP 179/83
--- NOTE | 2019-07-23 11:03 | NUR ---
PATIENT C/O HEMMORROIDS. REPORTED TO MARGARETTE OJEDA. SHE SAID SHE WOULD ORDERS SOME CREAM.
--- NOTE | 2019-07-23 11:53 | NUR ---
REHAB PRESCREENING Rehab referral received and chart reviewed. Ms. Marks is a good candidate for Acute Inpatient Rehab. I will begin her screen and she will be accepted to rehab if she is agreeable to come, approvals are in place and her physicians agree she is appropriate for discharge. Thank you for this referral! Sheila Nicholas, [employer] SALESPERSON Rehab PD
[2019-07-23 12:00] VITALS: BP 149/75
--- NOTE | 2019-07-23 13:15 | NUR ---
PATIENT HAD A LARGE BM, VERY FIRM. REPORTS RELIEF.
--- NOTE | 2019-07-23 13:22 | NUR ---
Nutrition Follow-up: Poor PO intake this AM (~10%) and c/o constipation. Noted since visit pt has had large BM with relief. Receiving Ensure 1x/daily but reports she doesn't always drink it. Diet: Cardiac, Ensure 1x/day PO intake: 10-75% Wt: 123# (07/21); 121# (07/20) Labs noted: Na 134, K+ 3.2 Meds noted: Lasix, KDur, Coumadin, Oscal, vitamin B6, Senokot, Miralax, Prednisone, Protonix -Encourage PO intake and honor food preferences within diet restrictions. -Monitor wt; noted daily wts ordered. -RD following.
[2019-07-23 15:45] VITALS: BP 143/67
--- NOTE | 2019-07-23 17:05 | MORECARE ---
CASE MANAGEMENT DISCHARGE SUMMARY PATIENT: KIMBERLY SOW UNIT: [id number] ADM DATE: 07/17/19 AGE: 88 : 32 SEX: F ROOM/BED: D.2104 AUTHOR: EDDIE LUNA PHYSICIAN: REFERRING PHYSICIAN: CRUZITO COWAN MD DATE OF SERVICE: 07/23/19 Discharge Plan Patient Name: KIMBERLY SOW Facility: [facility]:[place] : 1930 Planned Disposition: Inpatient Rehab Anticipated Discharge Date: 07/23/19 Discharge Date: Expected LOS: 6 Initial Reviewer: [email or web address] Initial Review Date: 07/23/2019 Generated: 07/23/19 6:04 pm Coverage Notice Reviewer: [email or web address] Jaspal Alarcon Notice Issued Date-Time: 07/23/2019 16:55 Notice Type: IM Discharge Notice Notice Delivered To: Patient Relationship to Patient: Security Guards Dispatcher Name: Delivery Method: HAND - Hand Delivered Debbie Days: Prior Verbal Notification: Recipient Understood Notice: Yes Recipient Signature: Yes Med Rec Note Co-signed by Attending: Coverage Notice Comment: Reviewer: [email or web address] Jaspal Alarcon Notice Issued Date-Time: 07/23/2019 16:55 Notice Type: Patient Choice Letter Notice Delivered To: Patient Relationship to Patient: Security Guards Dispatcher Name: Delivery Method: HAND - Hand Delivered Debbie Days: Prior Verbal Notification: Recipient Understood Notice: Yes Recipient Signature: Yes Med Rec Note Co-signed by Attending: Coverage Notice Comment: [facility] Patient Name: KIMBERLY SOW Page [phone] at 1705 All edits/amendments must be made on the electronic document DICTATION DATE: 07/23/19 170 SCUBA DIVER: MARISELA 07/23/19 1704 RPT#: [id number] DC DATE: STATUS: ADM IN [facility] [address] [place] [address] END OF REPORT
--- NOTE | 2019-07-23 17:12 | MORECARE ---
CASE MANAGEMENT DISCHARGE SUMMARY PATIENT: KIMBERLY OSW UNIT: [id number] ADM DATE: 07/17/19 AGE: 88 : 32 SEX: F ROOM/BED: D.2104 AUTHOR: JEREMY,DOC PHYSICIAN: REFERRING PHYSICIAN: CRUZITO COWAN MD DATE OF SERVICE: 07/23/19 Discharge Plan Patient Name: KIMBERLY SOW Facility: [facility]:[place] : 1930 Planned Disposition: Inpatient Rehab Anticipated Discharge Date: 07/23/19 Discharge Date: Expected LOS: 6 Initial Reviewer: [email or web address] Initial Review Date: 07/23/2019 Generated: 07/23/19 6:12 pm Comments DCP- Discharge Planning Updated by [email or web address]: Kristian Alarcon on 07/23/19 4:[address] Patient Name: KIMBERLY SOW Admission Status: ER Accout number: [id number] Admission Date: 07-17-2019 : 1930 Admission Diagnosis: Attending: CRUZITO HUFFMAN Current LOS: 6 Anticipated DC Date: 07-23-2019 Planned Disposition: Inpatient Rehab Primary Insurance: MEDICARE A & B PLANNED EXTERNAL PROVIDER: [facility] Discharge Planning Comments: CM RECEIVED INPATIENT REHAB PRESCREENING AND ORDER FOR NEBULIZER AND NEB MEDICATIONS. CM MET WITH PT IN ROOM TO DISCUSS DISCHARGE PLANNING AND NEEDS. PT REPORTS LIVING AT HOME INDEPENDENTLY WITH HER ADULT SON. PT HAS STANDARD AND ROLLATOR WALKER WITH NO MEDICAL EQUIPMENT PROVIDER PREFERENCE. PT HAS HOME HEALTH WITH [facility] [place]. CM DISCUSSED AVAILABILITY OF HOME HEALTH, REHAB SERVICES AND MEDICAL EQUIPMENT. CM DISCUSSED AVAILABILITY OF REHAB, PROVIDERS AND LOCATIONS. PT WANTS REHAB AT [place]. IMPORTANT MESSAGE FROM MEDICARE PROVIDED AND EXPLAINED. CHOICE SIGNED FOR [facility]. CM RECEIVED CALL FROM [facility] OF INPATIENT REHAB, THEY WILL ACCEPT PT INTO ROOM 1117-B TODAY. COMMIS CHEF NURSE, PT AND FAMILY NOTIFIED. [facility] READY TO ACCEPT PT AND NURSE REPORT. PT TO ADMIT TO ROOM 1117-B. Leach Cell Operator: Kristian Alarcon DCPIA - Discharge Planning Initial Assessment Updated by [id number]: Kristian Alarcon on 07/23/19 5:06 pm * Is the patient Alert and Oriented? Yes * How many steps to enter\exit or inside your home? RAMP * PCP DR. LOPEZ * [facility] * Preadmission Environment Home with Family * ADLs Independent * Equipment Rolling Walker Walker * Other Equipment ROLLATOR WALKER NO MEDICAL EQUIPMENT PROVIDER PREFERENCE * List name and contact numbers for known caregivers / representatives who currently or will assist patient after discharge: DANDRE MARTINEZ, DTR, * Verbal permission to speak to the caregivers and representatives has been obtained from the patient. N/A * Community resources currently utilized None * Please name any agencies selected above. NONE * Additional services required to return to the preadmission environment? No * Can the patient safely return to the preadmission environment? Yes * Has this patient been hospitalized within the prior 30 days at any hospital? No Coverage Notice Reviewer: [email or web address] Alarcon Notice Issued Date-Time: 07/23/2019 16:55 Notice Type: IM Discharge Notice Notice Delivered To: Patient Relationship to Patient: Director Of Academic Name: Delivery Method: HAND - Hand Delivered Debbie Days: Prior Verbal Notification: Recipient Understood Notice: Yes Recipient Signature: Yes Med Rec Note Co-signed by Attending: Coverage Notice Comment: Reviewer: [id number] Alarcon Notice Issued Date-Time: 07/23/2019 16:55 Notice Type: Patient Choice Letter Notice Delivered To: Patient Relationship to Patient: Director Of Academic Name: Delivery Method: HAND - Hand Delivered Debbie Days: Prior Verbal Notification: Recipient Understood Notice: Yes Recipient Signature: Yes Med Rec Note Co-signed by Attending: Coverage Notice Comment: [facility] Last DP export: 07/23/19 4:05 pm Patient Name: KIMBERLY SOW Page [phone] at 1712 All edits/amendments must be made on the electronic document DICTATION DATE: 07/23/191711 VOCATIONAL PSYCHOLOGIST: MARISELA 07/23/191711 RPT#: [id number] DC DATE: STATUS: ADM IN [facility] [address] [place] [address] END OF REPORT
[2019-07-23] MEDS ORDERED: ATROVENT 0.02%2.5 ML UPD (18:15)
[2019-07-23] MEDS ORDERED: LEVOFLOXACIN500 MG PO (18:15)
[2019-07-23] MEDS ORDERED: COUMADIN5 MG PO (18:15)
[2019-07-23] MEDS ORDERED: BETAPACE 120 M120 MG PO (18:16)
[2019-07-23] MEDS ORDERED: TESSALON PERLE100 MG PO (18:16)
[2019-07-23] MEDS ORDERED: MUCINEX DM ER1 EAC1 PO (18:16)
[2019-07-23] MEDS ORDERED: SINGULAIR10 MG PO (18:17)
[2019-07-23] MEDS ORDERED: FLUTICASONE PRO16 GM NASAL (18:17)
[2019-07-23] MEDS ORDERED: PROTONIX40 MG PO (18:17)
[2019-07-23] MEDS ORDERED: Senokot-S Tablet PO (18:18)
[2019-07-23] MEDS ORDERED: MIRALAX17 GM PO (18:18)
[2019-07-23] MEDS ORDERED: ANUSOL-HC 2.5%30 GM RC (18:18)
[2019-07-23] MEDS ORDERED: PREDNISONE10 MG PO (18:20)
[2019-07-23] MEDS ORDERED: LASIX40 MG PO (18:22)
[2019-07-23] MEDS ORDERED: K-DUR20 MEQ PO (18:23)
[2019-07-23] MEDS ORDERED: FLORAJEN3 CAPS460 MG PO (18:27)
--- NOTE | 2019-07-23 20:26 | NUR ---
OT NOTE: PT COMPLETED BED MOB TASK WITH CGA. PT COMPLETED EOB SITTING WITH SBA. PT COMPLETED HAND HYGIENE WITH SETUP. [phone] THANK YOU,OTTONIEL KELLOGG
[2019-07-24 17:08] LABS: AEROBE ID Preliminary report (()); RESULT 1 Gram negative rods (())
== END 2019-07-23 20:42 | DRG 177 ==
LOC: D.ER 01:15 → D.M2 01:58
PROVIDERS: Family Medicine; Internal Medicine Nephrology; Internal Medicine Pulmonary Disease; ADMIT Family Medicine; ATTEND Family Medicine
DX: J15.6 Pneumonia due to other Gram-negative bacteria (principal); J96.01 Acute respiratory failure with hypoxia; I50.21 Acute systolic (congestive) heart failure; I13.0 Hypertensive heart and chronic kidney disease with heart failure and stage 1 through stage 4 chronic kidney disease, or unspecified chronic kidney disease; N17.9 Acute kidney failure, unspecified; E78.5 Hyperlipidemia, unspecified; E03.9 Hypothyroidism, unspecified; I48.0 Paroxysmal atrial fibrillation; I08.1 Rheumatic disorders of both mitral and tricuspid valves; N18.9 Chronic kidney disease, unspecified; I25.10 Atherosclerotic heart disease of native coronary artery without angina pectoris; K59.00 Constipation, unspecified; Z95.0 Presence of cardiac pacemaker

== ENCOUNTER 2019-07-23 18:02 | Inpatient (IN) | payer MEDICARE, BC ==
[~2019-07-23] VITALS: Ht 167.6 cm; Wt 55.3 kg
[~2019-07-23 18:02] MED LIST changes: +ZOFRAN4 MG PO
[2019-07-23] MEDS ORDERED: ATROVENT 0.02%2.5 ML UPD (18:15)
[2019-07-23] MEDS ORDERED: COUMADIN5 MG PO (18:15)
[2019-07-23] MEDS ORDERED: LEVOFLOXACIN500 MG PO (18:15)
[2019-07-23] MEDS ORDERED: TESSALON PERLE100 MG PO (18:16)
[2019-07-23] MEDS ORDERED: MUCINEX DM ER1 EAC1 PO (18:16)
[2019-07-23] MEDS ORDERED: BETAPACE 120 M120 MG PO (18:16)
[2019-07-23] MEDS ORDERED: SINGULAIR10 MG PO (18:17)
[2019-07-23] MEDS ORDERED: PROTONIX40 MG PO (18:17)
[2019-07-23] MEDS ORDERED: FLUTICASONE PRO16 GM NASAL (18:17)
[2019-07-23] MEDS ORDERED: Senokot-S Tablet PO (18:18)
[2019-07-23] MEDS ORDERED: ANUSOL-HC 2.5%30 GM RC (18:18)
[2019-07-23] MEDS ORDERED: MIRALAX17 GM PO (18:18)
[2019-07-23] MEDS ORDERED: PREDNISONE10 MG PO (18:20)
[2019-07-23] MEDS ORDERED: LASIX40 MG PO (18:22)
[2019-07-23] MEDS ORDERED: K-DUR20 MEQ PO (18:23)
[2019-07-23] MEDS ORDERED: FLORAJEN3 CAPS460 MG PO (18:27)
--- NOTE | 2019-07-23 20:24 | NUR ---
PT ARRIVED BY WC ACCOMPANIED BY STAFF W/ BELONGINGS, PT ORIENTED TO UNIT AND STAFF,ASSESSMENT COMPLETED, CALL LIGHT WITHIN REACH
[2019-07-23 22:10] VITALS: BP 146/68; BMI 19.7
--- NOTE | 2019-07-24 03:12 | NUR ---
PT IN BED ASLEEP, NO NEEDS NOTED, CALL LIGHT AND FLUIDS WITHIN REACH
[2019-07-24 05:58] LABS: BASOPHILS 0.1 % (0-2); HEMATOCRIT 38.8 % (36.0-48.0); HEMOGLOBIN 13.2 g/dL (12-16); IMMATURE GRANULOCYTES 0.7 % (0-5); LYMPHOCYTES 25.8 % (15-50); MCH 31.4 pg (26.0-34.0); MCV 92.4 fL (80.0-100.0); MEAN PLATELET VOLUME 11.2 fL (7.4-10.4); MONOCYTES 11.9 % (2-11); NEUTROPHILS 60.5 % (40-80); PLATELET COUNT 286 10x3/uL (130-400); RDW 14.9 % (11.5-14.5); WBC 10.5 10x3/uL (4.8-10.8)
[2019-07-24 06:30] LABS: ANION GAP 8.8 mmol/L (8-16); CALCIUM 9.2 mg/dL (8.5-10.1); CARBON DIOXIDE 33.4 mmol/L (21.0-32.0); CREATININE - SERUM 1.4 mg/dL (0.6-1.3); POTASSIUM - SERUM 3.2 mmol/L (3.5-5.1)
[2019-07-24 08:03] VITALS: BP 164/66
--- NOTE | 2019-07-24 12:30 | NUR ---
SITTING UP IN BED EATING LUNCH. DENIES NEEDS OR C/O. CALL LIGHT IN REACH
--- NOTE | 2019-07-24 14:31 | NUR ---
RESTING QUIETLY IN BED. DENIES NEEDS OR C/O. CALL LIGHT IN REACH
[2019-07-24 14:54] VITALS: Ht 167.6 cm; Wt 55.3 kg
--- NOTE | 2019-07-24 16:34 | NUR ---
PATIENT ADMITTED TO REHAB FROM ACUTE FLOOR.HER PCP IS DR. LOPEZ, SHE HAS HOME HEALTH WITH [facility] IN [facility]. DME AT HOME IS A [facility].DISCHARGE PLANS ARE FOR HER TO RETURN HOME. WILL CONTINUE TO FOLLOW WITH PATIENT.
--- NOTE | 2019-07-24 19:15 | NUR ---
PT LYING IN BED WATCHING TV. CL IN REACH. DENIES NEEDS OR PAIN AT THIS TIME. BED IN LOW SIDE RAILS X2. A/O X4. LUNGS CLEAR. BOWEL ACTIVE X4. RESP EVEN AND UNLABORED. WILL CONTINUE TO MONITOR.
[2019-07-24 21:03] VITALS: BP 147/68
--- NOTE | 2019-07-25 01:16 | NUR ---
PT LYING IN BED ON RIGHT SIDE EYES CLOSED RESTING. RR EVEN AND UNLABORED. CL IN REACH
--- NOTE | 2019-07-25 05:52 | NUR ---
I have reviewed this patient and I concur with the Shift Assessment completed by the Licensed Practical Nurse today this shift.
[2019-07-25 07:23] LABS: BASOPHILS 0.1 % (0-2); HEMATOCRIT 36.4 % (36.0-48.0); HEMOGLOBIN 12.1 g/dL (12-16); IMMATURE GRANULOCYTES 0.7 % (0-5); LYMPHOCYTES 27.7 % (15-50); MCH 31.1 pg (26.0-34.0); MCHC 33.2 g/dL (31.0-37.0); MCV 93.6 fL (80.0-100.0); MEAN PLATELET VOLUME 11.3 fL (7.4-10.4); NEUTROPHILS 56.5 % (40-80); PLATELET COUNT 261 10x3/uL (130-400); RBC 3.89 10x6/uL (4.00-5.40); RDW 14.8 % (11.5-14.5)
[2019-07-25 07:36] LABS: ANION GAP 7.7 mmol/L (8-16); CALCIUM 8.6 mg/dL (8.5-10.1); CARBON DIOXIDE 32.3 mmol/L (21.0-32.0); CREATININE - SERUM 1.3 mg/dL (0.6-1.3)
--- NOTE | 2019-07-25 08:00 | NUR ---
SHIFT ASSMT COMPLETED.BREAKFAST TRAY GIVEN.CL IN REACH.
[2019-07-25 09:10] LABS: INR 1.77 (0.85-1.17); PROTIME 20.4 SECONDS (11.6-15.0)
--- NOTE | 2019-07-25 12:00 | NUR ---
LUNCH GIVEN.DENIES NEEDS.
--- NOTE | 2019-07-25 14:31 | NUR ---
CARE TEAM MEETING: PATIENT DAUGHTER ATTENDED MEETING. HER QUESTIONS AND CONCERNS WERE ADDRESSED. PATIENT IS DOING VERY WELL IN THERAPY. WILL CONTINUE TO FOLLOW WITH PATIENT.
--- NOTE | 2019-07-25 19:17 | NUR ---
AWAKE AND ALERT. RESPIRATIONS UNALBORED. ASSISTED TO BATHROOM AND BACK TO WHEELCHAIR. GAIT STEADY WITH WALKER. NO ACUTE DISTRESS NOTED. CALL LIGHT IN REACH.
--- NOTE | 2019-07-26 01:10 | NUR ---
AWAKE AND STATES SHE IS HAVING [id number] SLEEPING. ASSISTED TO BATHROOM AND BACK TO BED. WILL CONTINUE TO MONITOR.
--- NOTE | 2019-07-26 02:42 | NUR ---
RESTING IN BED WITH EYES CLOSED AND RESPIRATIONS UNLABORED. NO DISTRESS NOTED.
--- NOTE | 2019-07-26 05:37 | NUR ---
QUIET HOURS. NO ACUTE CHANGES IN CONDITION THIS SHIFT. NO ACUTE DISTRESS NOTED. CALL LIGHT IN REACH.
[2019-07-26 07:37] VITALS: BP 145/69
--- NOTE | 2019-07-26 08:00 | NUR ---
SHIFT ASSMT COMPLETED.CL IN REACH.BREAKFAST TAKEN TO THERAPY.
--- NOTE | 2019-07-26 11:48 | NUR ---
READY FOR LUNCH.CL IN REACH.
--- NOTE | 2019-07-26 15:13 | NUR ---
Nutrition Follow-up: Diet: Cardiac PO intake: ~51% average x last 9 meals; reports that her appetite was good this morning. She is willing to get Boost on meal trays. Last BM: 07/25/19. WT: 122# (07/24/19) Meds noted: prednisone, coumadin, lasix, senokot, miralax. Labs noted: Na 135(L), K 3.0(L), BUN 29(H), GFR 41(L) Recommend continue current diet. Will add Boost BID. RD following.
--- NOTE | 2019-07-26 16:00 | NUR ---
UP IN CHAIR.
--- NOTE | 2019-07-26 17:15 | NUR ---
RECIEVED FROM ACUTE FLOOR PER WC TO ROOM 1117A.ORIENTED TO SURROUNDINGS.CL IN REACH.
--- NOTE | 2019-07-26 18:20 | NUR ---
GREETED PATIENT AND INTRODUCED MYSELF HER NURSE. PATIENT IS LAYING IN BED RESTING QUIETLY AT THIS TIME. RESPIRATIONS EVEN. NO S/S OF DISTRESS. CALL LIGHT IN REACH. PT. DENIES ANY NEEDS AT THIS TIME.
[2019-07-26 19:30] VITALS: BP 141/64
--- NOTE | 2019-07-27 02:58 | NUR ---
PT RESTING QUIETLY WITH EYES CLOSED. RESPIRATIONS EVEN. NO S/S OF DISTRESS. CALL LIGHT IN REACH.
[2019-07-27 06:22] LABS: BASOPHILS 0 % (0-2); EOSINOPHILS 0.4 % (0-7); HEMATOCRIT 36.5 % (36.0-48.0); HEMOGLOBIN 12.2 g/dL (12-16); IMMATURE GRANULOCYTES 0.7 % (0-5); LYMPHOCYTES 19.8 % (15-50); MCH 31.4 pg (26.0-34.0); MCHC 33.4 g/dL (31.0-37.0); MCV 94.1 fL (80.0-100.0); MEAN PLATELET VOLUME 11.8 fL (7.4-10.4); MONOCYTES 9.5 % (2-11); NEUTROPHILS 69.6 % (40-80); PLATELET COUNT 245 10x3/uL (130-400); RBC 3.88 10x6/uL (4.00-5.40); RDW 14.7 % (11.5-14.5)
[2019-07-27 06:41] LABS: ANION GAP 11.1 mmol/L (8-16); CALCIUM 8.2 mg/dL (8.5-10.1); CARBON DIOXIDE 28.2 mmol/L (21.0-32.0); CREATININE - SERUM 1.4 mg/dL (0.6-1.3); WBC 13.4 10x3/uL (4.8-10.8)
[2019-07-27 06:57] LABS: POTASSIUM - SERUM 4.3 mmol/L (3.5-5.1)
[2019-07-27 08:26] VITALS: BP 141/71
[2019-07-27 09:16] LABS: INR 2.47 (0.85-1.17); PROTIME 26.4 SECONDS (11.6-15.0)
--- NOTE | 2019-07-27 10:50 | NUR ---
LAYING IN BED RESTING QUIETLY. SHE STATES SHE DOES NOT FEEL WELL THIS MORNING. NO FEVER NOTED. CALL LIGHT IN REACH
--- NOTE | 2019-07-27 15:41 | NUR ---
WALKED TO BATHROOM WITH SBA FROM NURSE.
[2019-07-27 19:20] VITALS: BP 130/60
--- NOTE | 2019-07-27 19:45 | NUR ---
PATIENT RECEIVED LAYING IN BED. ASSESSMENT & VITAL SIGNS DONE. NO C/O PAIN OR DISTRESS. PATIENT REFUSING TO TAKE SENNA, & MIRALAX. HAD BM TODAY. BED LOW. ALARM ON. CALL LIGHT WITHIN REACH. WILL CONTINUE TO MONITOR.
--- NOTE | 2019-07-28 01:22 | NUR ---
PATIENT USED C/L FOR ASSIST. PATIENT ONE PERSON INTO WHEELCHAIR & ONTO COMMODE. PATIENT HAD VOID. PATIENT RETURNED TO BED C/L WITHIN REACH. WILL CONTINUE TO MONITOR.
--- NOTE | 2019-07-28 02:37 | NUR ---
PATIENT EYES CLOSED. RESPIRATIONS 18 & EVEN. BED LOW. ALARM ON. CALL LIGHT WITHIN REACH. WILL CONTINUE TO MONITOR.
--- NOTE | 2019-07-28 02:59 | NUR ---
I have reviewed this patient and I concur with the Shift Assessment completed by the Licensed Practical Nurse today this shift.
[2019-07-28 08:00] VITALS: BP 95/43
--- NOTE | 2019-07-28 16:16 | NUR ---
RESTING QUIETLY IN BED. NO S/S DISTRESS OR NEEDS. CALL LIGHT IN REACH
--- NOTE | 2019-07-28 19:00 | NUR ---
PATIENT RECEIVED SITTING UP IN BED. VITAL SIGNS & ASSESSMENT DONE. NO C/O PAIN OR DISTRESS AT THIS TIME. BED LOW. ALARM ON. CALL LIGHT WITHIN REACH. WILL CONTINUE TO MOUITOR.
[2019-07-28 19:26] VITALS: BP 131/55
--- NOTE | 2019-07-29 00:09 | NUR ---
I have reviewed this patient and I concur with the Shift Assessment completed by the Licensed Practical Nurse today this shift.
--- NOTE | 2019-07-29 00:09 | NUR ---
I have reviewed this patient and I concur with the Shift Assessment completed by the Licensed Practical Nurse today this shift.
--- NOTE | 2019-07-29 05:00 | NUR ---
PATIENT USED CALL LIGHT FOR ASSIST TO BATHROOM. VOID ONLY. MINIMAL ASSIST IN & OUT OF BED. BED LOW. ALARM ON. CALL LIGHT WITHIN REACH. WILL CONTINUE TO MONITOR.
[2019-07-29 08:00] VITALS: BP 131/63
--- NOTE | 2019-07-29 19:06 | NUR ---
GREETED PATIENT AND INTRODUCED MYSELF HER NURSE. PATIENT IS LAYING IN BED RESTING QUIETLY AT THIS TIME. RESPIRATIONS EVEN. NO S/S OF DISTRESS. DENIES ANY NEEDS AT THIS TIME. CALL LIGHT IN REACH.
[2019-07-29 19:30] VITALS: BP 130/66
--- NOTE | 2019-07-30 00:04 | NUR ---
PT RESTING QUIETLY WITH EYES CLOSED. RESPIRATIONS EVEN. NO S/S OF DISTRESS. CALL LIGHT WITHIN REACH ON LEFT SIDE OF PATIENT.
--- NOTE | 2019-07-30 04:35 | NUR ---
PT RESTING QUIETLY WITH EYES CLOSED. RESPIRATIONS EVEN. NO S/S OF DISTRESS. CALL LIGHT IN REACH ON LEFT SIDE OF PATIENT.
[2019-07-30 05:25] LABS: BASOPHILS 0.2 % (0-2); EOSINOPHILS 0.7 % (0-7); HEMATOCRIT 37.3 % (36.0-48.0); HEMOGLOBIN 12.6 g/dL (12-16); IMMATURE GRANULOCYTES 0.4 % (0-5); LYMPHOCYTES 26.1 % (15-50); MCH 31.3 pg (26.0-34.0); MCHC 33.8 g/dL (31.0-37.0); MCV 92.6 fL (80.0-100.0); MEAN PLATELET VOLUME 11.2 fL (7.4-10.4); MONOCYTES 8.7 % (2-11); NEUTROPHILS 63.9 % (40-80); PLATELET COUNT 212 10x3/uL (130-400); RBC 4.03 10x6/uL (4.00-5.40); RDW 14.9 % (11.5-14.5); WBC 12.2 10x3/uL (4.8-10.8)
[2019-07-30 05:42] LABS: ANION GAP 9.3 mmol/L (8-16); CALCIUM 8.4 mg/dL (8.5-10.1); CREATININE - SERUM 1.2 mg/dL (0.6-1.3); POTASSIUM - SERUM 4.3 mmol/L (3.5-5.1)
[2019-07-30 08:00] VITALS: BP 145/67
--- NOTE | 2019-07-30 11:34 | NUR ---
SITTING UP IN BED WATCHINGT TV. DENIES NEEDS OR CO. DOES OWN ADL'S AND MOVES AFOUND IN THE ROOM WITH SBA. DENIES NEEDS OR C/O.
--- NOTE | 2019-07-30 14:15 | NUR ---
WALKING HALLS WITH THERAPY
--- NOTE | 2019-07-30 17:18 | NUR ---
SITTING IN ROOM QUIETLY. DENIES NEEDS OR C/O. POOR RECALL NOTED. IS WYATT X4 BUT ASKS "WHAT DO I DO NEXT?" OFTEN. CALL LIGHT IN REACH, BED IN LOWEST POSITION, SIDE RAILS UP X2.
--- NOTE | 2019-07-30 18:52 | NUR ---
GREETED PATIENT AND INTRODUCED MYSELF HER NURSE. PATIENT IS LAYING IN BED WATCHING TV AT THIS TIME. RESPIRATIONS EVEN. NO S/S OF DISTRESS. DENIES ANY NEEDS AT THIS TIME. CALL LIGHT WITHIN REACH ON LEFT SIDE OF PATIENT.
[2019-07-30 19:30] VITALS: BP 140/60
--- NOTE | 2019-07-30 23:48 | NUR ---
PT RESTING QUIETLY WITH EYES CLOSED. RESPIRATIONS EVEN. NO S/S OF DISTRESS. CALL LIGHT WITHIN REACH ON LEFT SIDE OF PATIENT.
--- NOTE | 2019-07-31 04:07 | NUR ---
PT AWAKE AND ASSISTED TO BATHROOM USING ONE PERSON ASSIST WITH WALKER. BACK TO BED AND REPOSITIONED FOR COMFORT. CALL LIGHT WITHIN REACH ON RIGHT SIDE OF PATIENT.
[2019-07-31 08:00] VITALS: BP 158/75
--- NOTE | 2019-07-31 08:00 | NUR ---
SHIFT ASSMT COMPLETED.BREAKFAST GIVEN.CL IN REACH.DENIES NEEDS.
--- NOTE | 2019-07-31 12:00 | NUR ---
SITTING UP EATING LUNCH.
--- NOTE | 2019-07-31 15:37 | NUR ---
Nutrition Follow-up: Diet: Cardiac + Boost BID PO intake: ~50% average x last 9 meals Last BM: 07/30/19. WT: 122# (07/24/19), no new WT Meds noted: coumadin, prednisone, kdur, lasix, senokot, miralax Recommend continue current diet, may consider liberalizing to regular 2/2 patinet's advanced age and marginally low PO intake. Continue current oral nutrition supplements. RD following.
[2019-07-31 15:57] LABS: PROTIME 30.6 SECONDS (11.6-15.0)
--- NOTE | 2019-07-31 16:00 | NUR ---
HAS VISITOR.DENIES NEEDS.
[2019-07-31 20:00] VITALS: BP 131/60
--- NOTE | 2019-07-31 20:00 | NUR ---
PATIENT RECEIVED SITTING UP IN BED. ASSESSMENT & VITAL SIGNS DONE. NO C/O PAIN OR DISTRESS. BED LOW. ALARM ON. CALL LIGHT WITHIN REACH. WILL CONTINUE TO MONITOR.
--- NOTE | 2019-08-01 02:25 | NUR ---
I have reviewed this patient and I concur with the Shift Assessment completed by the Licensed Practical Nurse today this shift.
--- NOTE | 2019-08-01 04:02 | NUR ---
PATIENT AWAKE USED CALL LIGHT FOR ASSIST. PATIENT STANDBY ASSIST TO BATHROOM. VOID ONLY. RETURNED TO BED. ALARM ON. CALL LIGHT WITHIN REACH. WILL CONTINUE TO MONITOR.
[2019-08-01 07:09] LABS: INR 2.58 (0.85-1.17); PROTIME 27.2 SECONDS (11.6-15.0)
[2019-08-01 08:00] VITALS: BP 152/69
--- NOTE | 2019-08-01 08:00 | NUR ---
SHIFT ASSMT COMPLETED.BREAKFAST GIVEN.CL IN REACH.
--- NOTE | 2019-08-01 12:00 | NUR ---
SITTING UP IN CHAIR EATING.CL IN REACH.
--- NOTE | 2019-08-01 13:57 | NUR ---
CARE TEAM MEETING: PATIENT DAUGHTER ATTENDED MEETING. HER QUESTIONS AND CONCERNS WERE ADDRESSED. WILL CONTINUE TO FOLLOW WITH PATIENT.
--- NOTE | 2019-08-02 03:47 | NUR ---
PT IN BED ASLEEP NO NEEDS NOTED FLUIDS AND CALL LIGHT W/IN REACH
[2019-08-02 06:10] LABS: INR 2.24 (0.85-1.17); PROTIME 24.5 SECONDS (11.6-15.0)
[2019-08-02 08:00] VITALS: BP 141/75
--- NOTE | 2019-08-02 08:30 | NUR ---
SITTING UP IN BED IN ROOM EATING BREAKFAST. DENIES NEEDS OR C/O. BED ALARM IN PLACE. SIDE RAILS UP X2, BED IN LOWEST POSITION. CALL LIGHT IN REACH
--- NOTE | 2019-08-02 10:36 | NUR ---
WALKING HALLS WITH THERAPY
--- NOTE | 2019-08-02 17:22 | NUR ---
SITTING UP IN ROOM FOR SUPPER. DENIES NEEDS OR C/O. CALL LIGHT IN REACH
[2019-08-02 19:35] VITALS: BP 127/62
--- NOTE | 2019-08-02 21:03 | NUR ---
PATIENT RECEIVED SITTING UP IN BED. ASSESSMENT & VITAL SIGNS DONE. BED LOW. ALARM ON. CALL LIGHT WITHIN REACH. WILL CONTINUE TO MONITOR.
--- NOTE | 2019-08-03 03:48 | NUR ---
I have reviewed this patient and I concur with the Shift Assessment completed by the Licensed Practical Nurse today this shift.
--- NOTE | 2019-08-03 03:48 | NUR ---
PATIENT EYES CLOSED. RESPIRATIONS 18 & EVEN. BED LOW. CALL LIGHT WITHIN REACH. WILL CONTINUE TO MONITOR.
[2019-08-03 05:25] LABS: BASOPHILS 0.2 % (0-2); EOSINOPHILS 2.4 % (0-7); HEMATOCRIT 38.2 % (36.0-48.0); HEMOGLOBIN 12.5 g/dL (12-16); IMMATURE GRANULOCYTES 0.5 % (0-5); LYMPHOCYTES 27.9 % (15-50); MCH 31.3 pg (26.0-34.0); MCHC 32.7 g/dL (31.0-37.0); MCV 95.7 fL (80.0-100.0); MEAN PLATELET VOLUME 11.3 fL (7.4-10.4); MONOCYTES 10.4 % (2-11); NEUTROPHILS 58.6 % (40-80); PLATELET COUNT 197 10x3/uL (130-400); RBC 3.99 10x6/uL (4.00-5.40); RDW 14.9 % (11.5-14.5); WBC 8.4 10x3/uL (4.8-10.8)
[2019-08-03 05:38] LABS: INR 2.16 (0.85-1.17); PROTIME 23.8 SECONDS (11.6-15.0)
[2019-08-03 05:44] LABS: ANION GAP 9.5 mmol/L (8-16); CALCIUM 8.3 mg/dL (8.5-10.1); CARBON DIOXIDE 28.8 mmol/L (21.0-32.0); CREATININE - SERUM 1.6 mg/dL (0.6-1.3); POTASSIUM - SERUM 4.3 mmol/L (3.5-5.1)
[2019-08-03 08:00] VITALS: BP 147/60
--- NOTE | 2019-08-03 08:28 | RHP ---
PATIENT: KIMBERLY SOW MEDICAL RECORD: [id number] ACCOUNT: [id number] [id number] AD[facility]ION DATE: 07/23/19 REHABILITATION HISTORY AND PHYSICAL EXAMINATION POST ADMISSION PHYSICIAN EXAMINATION ADMITTING DIAGNOSIS: Multifocal pneumonia. HISTORY OF PRESENT ILLNESS: The patient is an 88-year-old female patient who presented secondary to shortness of breath and chest heaviness. She was seen by EMS and had moderate distress. She was seen and evaluated. She was placed on Lasix, Solu-Medrol, Zofran, DuoNebs, and nitro. She has a past medical history of atrial fib, hypothyroidism, hypertension, hyperlipidemia, breast cancer. She was complaining of worsening dyspnea, dyspnea on exertion, chest heaviness, lower extremity edema, and nonproductive cough. She was admitted for pneumonia, which was multifocal patient was seen and evaluated by cardiology, here echo showed an EF of 55%. The patient had pulmonary consultation also during her stay. She has been seen by both PT and OT during her stay. She has been monitored closely for respiratory distress. Telemetry with pacemaker and recent paroxysmal atrial fib. She is on supplemental O2, p.r.n. electrolyte protocol, pain control, monitor lab values, weakness, balance deficits. She has got decreased range of motion, decreased strength, gait disturbance, limited safety awareness. She is at risk for falls, has low endurance, unsteady gait and balance. She fatigues easily. She has inability to care for herself. These reasons are for her to stay here at the rehab, she is not able to go home under these conditions. She lives at home with her son that works at night. She was completely independent with ADLs and mobility prior to this. She is now using a rolling walker. She is set up for mod assist for ADLs and mod assist for mobility. She and her family would like her to return home at her prior level of functioning or better with home health. COMORBIDITIES: Include community-acquired pneumonia, heart failure. She has got chronic atrial fib, hypothyroidism, hypertension, hyperlipidemia, history of breast cancer, got a history of allergic rhinitis, souhd-sn-hztinlb cough, got a history of need for long-term anticoagulation. She has got primary cardiac pacemaker, hypothyroidism. Got a history of malignant neoplasm to the breast. She got a history of osteoporosis, compression fracture. She has a back brace, chronic kidney disease, leukocytosis resolved due to pneumonia and steroids, got constipation. PAST MEDICAL HISTORY: Significant for pacemaker, atrial fib, breast cancer, mastectomy secondary to lung cancer. She got asthma, restrictive lung disease, hyperlipidemia, osteoporosis, chronic kidney disease, hypothyroidism. 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 PAST SURGICAL HISTORY: Includes appendectomy, mastectomy, lumpectomy, lymphadenectomy of her right side. ALLERGIES: CODEINE. CURRENT MEDICATIONS: She is on a tapering dose of prednisone. She is on warfarin 5 mg daily, Floranex 1 cap daily. She is on Vitamin B6 50 mg daily. She is on potassium 20 mEq daily, lisinopril 5 mg daily, Levaquin 500 mg daily, furosemide 40 mg daily. She is on Flonase nasal spray 2 sprays daily, Protonix HISTORY AND PHYSICAL [id number] SOW,KIMBERLY 40 mg daily, Synthroid 50 mcg daily, Tambocor 100 mg b.i.d., sotalol 220 mg b.i.d., Senokot 1 tab b.i.d., MiraLax 17 g in 8 ounces of water daily. She is on Mucinex D 1 tab b.i.d., Colace 100 mg at bedtime. She is on Os-Gigi 500 mg b.i.d., Tessalon Perles 100 mg t.i.d., Nitrostat p.r.n., Zofran p.r.n. nausea and vomiting. She is on [place] 5/325 one tab q.4-6 hours p.r.n. and Anusol-HC as needed for hemorrhoids. HABITS: No alcohol or tobacco use. FAMILY HISTORY: Noncontributory. SOCIAL HISTORY: The patient hopes to return back home and get back to her prior level of functioning. REVIEW OF SYSTEMS: GENERAL: Does complain of weakness and fatigue. HEENT: Denies cold, cough, or congestion. CARDIOVASCULAR: Denies any chest pain. PHYSICAL EXAMINATION: VITAL SIGNS: Stable, afebrile. GENERAL: Elderly female, in no acute distress upon exam. HEENT: Normocephalic and atraumatic. Mucosa moist. NECK: Supple without adenopathy. LUNGS: Clear in [place] with decreased breath sounds in the bases. HEART: Irregular rate and rhythm. ABDOMEN: Soft, benign, and nondistended. Positive bowel sounds times 4. EXTREMITIES: No clubbing, cyanosis or edema. NEUROLOGIC: She does have noted proximal muscle weakness. LABORATORY DATA: Her white count is 10.5, H&H 13 and 38, and platelet count is 286. Her sodium is 134, potassium 3.2, BUN and creatinine of 34 and 1.4 and blood sugar is noted to be 88. ASSESSMENT: This is an 88-year-old female patient admitted to rehab with a working diagnosis of debility secondary to multifocal pneumonia. The patient has potential to make improvement. We instituted the following multidisciplinary therapies include, but not limited to physical, occupational, respiratory, speech, nutritional services, prosthetics and orthotics. Given her complex medical condition and risk for more complications, rehabilitation services cannot be provided at a low level of care such as skilled nurse facility. PLAN: 1. Admit to [facility] for an inpatient therapy to include the following disciplines: A. Physical therapy to improve gait, all transfer skills and bed mobility to a modified independent level. B. Occupational therapy to improve activities of daily living. C. Case management to assist with discharge planning and placement options. D. Nutrition to assist with nutritional needs. E. Rehabilitation nursing to assist in monitoring the patient's underlying medical conditions and to assist with any type of bowel or bladder management. 2. The patient's current medication and medical care will be continued. 3. The patient will be placed on standard fall precautions. HISTORY AND PHYSICAL [id number] KIMBERLY SOW 4. The patient's estimated length of stay is approximately 7-10 days. 5. We will discuss this patient during care team staff meeting this week. I am going to go ahead and replace her potassium. I am going to discuss this with clinical case manager in care team tomorrow. TRANSINT:[id number] Voice Confirmation ID: [id number] DOCUMENT ID: [id number] ARNULFO notes whether there has been none or any medical/functional change since admission: - No change since pre-admission screen. ARNULFO attests patient continues to be appropriate for IRF: - Continues to be appropriate. BREEZY RAMOS MD at 0828 CC: [id number] DICTATION DATE: 07/24/19 1101 IN SCHOOL SUSPENSION COORDINATOR: 07/24/19 1342 ADM IN [facility] [address] [id number]
--- NOTE | 2019-08-03 08:30 | NUR ---
SITTING UP IN BED FOR BREAKFAST. DENIES PAIN OR NEEDS. CALL LIGHT IN REACH. BED ALARM IN PLACE.
--- NOTE | 2019-08-03 09:31 | NUR ---
PATIENT DISCHARGING HOME TODAY WITH FAMILY. [facility] WILL RESUME THERAPY AT HOME. NO NEW DME NEEDED AT THIS TIME. DR. LOPEZ 08/16/19 @ 11:30. PATIENT CHOICE FORM SIGNED FOR HOME HEALTH. NO COMPARE DATA REVIEWED PATIENT IS ALREADY A CLIENT OF [facility] AND WANTS TO CONTINUE WITH THEM. [facility] FORM SIGNED AND EXPLAINED , ONE GIVEN TO PATIENT AND ONE FILED IN CHART.DISCHARGE INSTRUCTIONS FAXED TO PCP, HOME HEALTH AND REVIEWED WITH PATIENT.
--- NOTE | 2019-08-03 10:00 | NUR ---
DC HOME WITH FAMILLY. MEDS CALLED INTO PHARMACY. LEFT FLOOR IN .
== END 2019-08-03 12:20 | disposition home health service (06) | DRG 947 ==
LOC: D.REHAB 18:02
PROVIDERS: ADMIT Emergency Medicine; ATTEND Emergency Medicine
DX: R53.81 Other malaise (principal); J18.9 Pneumonia, unspecified organism; J96.01 Acute respiratory failure with hypoxia; I50.21 Acute systolic (congestive) heart failure; I48.20 Chronic atrial fibrillation, unspecified; I13.0 Hypertensive heart and chronic kidney disease with heart failure and stage 1 through stage 4 chronic kidney disease, or unspecified chronic kidney disease; J90 Pleural effusion, not elsewhere classified; N17.9 Acute kidney failure, unspecified; E03.9 Hypothyroidism, unspecified; E78.5 Hyperlipidemia, unspecified; Z95.0 Presence of cardiac pacemaker; M19.90 Unspecified osteoarthritis, unspecified site; K59.00 Constipation, unspecified; D72.829 Elevated white blood cell count, unspecified; M81.0 Age-related osteoporosis without current pathological fracture; N18.9 Chronic kidney disease, unspecified; I11.0 Hypertensive heart disease with heart failure

== ENCOUNTER → 2019-11-06 11:15 | Outpatient (CLI) | payer MEDICARE, BC ==
[2019-07-24 14:54] VITALS: BMI 19.7
[~2019-11-06 11:15] MED LIST changes: +ANUSOL-HC 2.5%30 GM RC; +ATROVENT 0.02%2.5 ML UPD; +BETAPACE 120 M120 MG PO; +COUMADIN5 MG PO; +FLORAJEN3 CAPS460 MG PO; +FLUTICASONE PRO16 GM NASAL; +LASIX40 MG PO; +LEVOFLOXACIN500 MG PO; +MIRALAX17 GM PO; +MUCINEX DM ER1 EAC1 PO; +PREDNISONE10 MG PO; +PROTONIX40 MG PO; +SINGULAIR10 MG PO; +Senokot-S Tablet PO; +TESSALON PERLE100 MG PO
== END | disposition home or self-care (01) ==
LOC: D.CT 11:00
PROVIDERS: ATTEND Internal Medicine Pulmonary Disease
DX: Z87.01 Personal history of pneumonia (recurrent) (principal)

== ENCOUNTER → 2020-02-18 11:30 | Outpatient (CLI) | payer MEDICARE, BC ==
[2019-07-24 14:54] VITALS: BMI 19.7
== END | disposition home or self-care (01) ==
LOC: D.RT 09-06 09:00 → D.RAD 09-06 10:00 → D.RT 09-28 15:00 → D.RAD 11-07 13:45 → D.RT 11-09 13:00 → D.RAD 11-09 13:00
PROVIDERS: ATTEND Internal Medicine Pulmonary Disease
DX: J44.9 Chronic obstructive pulmonary disease, unspecified (principal)